=== PATIENT | female | born 1965 | race African-American/Black ===

== ENCOUNTER 2024-04-03 15:53 | Emergency (ER) | payer MEDICAID ==
[~2024-04-03] VITALS: Ht 165.1 cm; Wt 61.0 kg
[2024-04-03 15:59] VITALS: O2SAT 99
[2024-04-03] MEDS ORDERED: DICYCLOMINE 10 MG/5 ML ORAL SYR PO STA (16:05)
[2024-04-03 16:46] LABS: BASOPHILS % 0.5 % (0.0-2.0); HEMOGLOBIN. 13.6 g/dL (12.0-16.0); LYMPHOCYTES % 14.3 % (20.0-50.0); MEAN CORPUSCULAR HEMOGLOBIN 29.9 pg (28.0-32.0); MEAN CORPUSCULAR HGB CONC 33.9 g/dL (31.0-37.0); MONOCYTES % 3.5 % (2.0-8.0); NEUTROPHILS % 81.7 % (40.0-76.0); PLATELET 317 x1000/uL (130-400); RED BLOOD CELL COUNT 4.54 mill/uL (4.2-5.4); WHITE BLOOD COUNT 7.3 x1000/uL (4.5-11.0)
[2024-04-03 16:55] LABS: CHLORIDE 106 mEq/L (98-107); SODIUM 143 mEq/L (136-145)
[2024-04-03 16:56] LABS: CALCIUM 9.7 mg/dL (8.7-10.4); CARBON DIOXIDE 26 mEq/L (21-32)
[2024-04-03 16:57] LABS: INR 1.1; PROTHROMBIN TIME 11.9 sec (9.6-11.0)
[2024-04-03] MEDS: DICYCLOMINE HCL 10MG CAPSULE PO NR (16:57)
[2024-04-03] MEDS: KETOROLAC 30MG/ML VIAL IV STA (16:58)
[2024-04-03] MEDS: MAGNESIUM/ALUMINUM HYDROXIDE/SIMETHICONE 30ML UDC PO STA (16:58)
[2024-04-03] MEDS: ONDANSETRON HCL 4MG/2ML INJ IV STA (16:58)
[2024-04-03 17:01] LABS: CREATININE 0.8 mg/dL (0.6-1.0); GLUCOSE 131 mg/dL (70-105)
[2024-04-03 17:02] LABS: UREA NITROGEN BLOOD 12 mg/dL (9-23)
[2024-04-03 17:03] LABS: ALANINE AMINOTRANSFERASE 9 IU/L (10-49); ALBUMIN 4.3 g/dL (3.2-4.8); ASPARTATE AMINOTRANSFERASE 21 IU/L (<34)
[2024-04-03 17:04] LABS: BILIRUBIN DIRECT 0.1 mg/dL (<=3.0); BILIRUBIN TOTAL 0.5 mg/dL (0.1-1.0); PROTEIN TOTAL 7.5 g/dL (6.0-8.3)
[2024-04-03] MEDS: KCL 20MEQ/100ML PREMIX 100 ML IV ONE (17:28)
[2024-04-03 18:47] LABS: CLARITY URINE CLEAR (CLEAR); COLOR URINE YELLOW (YELLOW); GLUCOSE URINE NEGATIVE (NEGATIVE); KETONES URINE 2+ (NEGATIVE); LEUKOCYTE ESTERASE URINE NEGATIVE (NEGATIVE); NITRITE URINE POSITIVE (NEGATIVE); OCCULT BLOOD URINE 1+ (NEGATIVE); PROTEIN URINE 2+ (NEGATIVE); SPECIFIC GRAVITY URINE 1.022 (1.005-1.030); UROBILINOGEN URINE 0.2 E.U./dL (0.2-1.0)
[2024-04-03 19:20] LABS: BACTERIA URINE 3+; SQUAMOUS EPITHELIAL CELL URINE 2+ /lpf (RARE/1+)
[2024-04-03] MEDS ORDERED: IBUP-2029 MT (19:23)
[2024-04-03] MEDS ORDERED: CEFP200T14 MT (19:23)
[2024-04-03 19:43] VITALS: BP 163/82; PULSE 78; RESP 16; TEMP 37.05852; O2SAT 99
[2024-04-03] MEDS: CEFTRIAXONE 1GM/50ML 50 ML IV ONE (20:03)
== END 2024-04-03 20:06 | disposition home or self-care (01) ==
LOC: ER 15:53
DX: D25.9 Leiomyoma of uterus, unspecified (principal); E87.6 Hypokalemia; N39.0 Urinary tract infection, site not specified
CPT/HCPCS: 80076; 80048; 81003; 83690; 85025; 85610; 36415; 74176; 93005; 96365; 96366; 96375; 99285; J1885; J2405; J3480; Z7610 ×2

== ENCOUNTER 2024-09-13 13:41 | Emergency (ER) | payer MEDICARE, MEDICAID ==
[~2024-09-13] VITALS: Ht 152.4 cm; Wt 46.0 kg
[~2024-09-13 13:41] MED LIST: CEFP200T14 MT; IBUP-2029 MT
[2024-09-13 13:44] VITALS: O2SAT 99
[2024-09-13 13:45] VITALS: BP 123/51; PULSE 97; RESP 16; TEMP 36.8; O2SAT 98
[2024-09-13] MEDS: KETOROLAC 30MG/ML VIAL IM STA (17:48)
== END 2024-09-13 17:51 | disposition home or self-care (01) ==
LOC: ER 13:41
DX: S09.90XA Unspecified injury of head, initial encounter (principal); F17.200 Nicotine dependence, unspecified, uncomplicated; F12.10 Cannabis abuse, uncomplicated; X58.XXXA Exposure to other specified factors, initial encounter; Y93.89 Activity, other specified; Y92.89 Other specified places as the place of occurrence of the external cause; Y99.8 Other external cause status
CPT/HCPCS: 99283; 96372; J1885